=== PATIENT | female | born 2000 | race African-American/Black ===

== ENCOUNTER 2020-06-30 19:22 | Emergency (ER) | payer MEDICAID ==
[~2020-06-30] VITALS: Ht 167.6 cm; Wt 64.0 kg
[2020-06-30 21:27] LABS: UCG SCREEN NEGATIVE
[2020-06-30] MEDS ORDERED: CEFTRIAXONE SODIUM 250 MG/VIAL IM ONE (22:00)
[2020-06-30] MEDS ORDERED: AZITHROMYCIN 500 MG TABLET PO ONE (22:00)
[2020-06-30 23:13] VITALS: BP 122/85
[2020-07-04 04:07] LABS: NEISSERIA GONORRHOEAE NAA Negative (Negative)
== END 2020-06-30 23:14 | disposition home or self-care (01) ==
LOC: ER 19:22
DX: A64 Unspecified sexually transmitted disease (principal); J45.909 Unspecified asthma, uncomplicated
CPT/HCPCS: 81025; 87210; 87491; 87591; 96372; 99283; J0696

== ENCOUNTER 2022-01-14 17:10 | Emergency (ER) | payer MEDICAID, OTHER ==
[~2022-01-14] VITALS: Ht 182.9 cm; Wt 67.0 kg
[2022-01-14 17:12] VITALS: BP 128/82
[2022-01-14] MEDS ORDERED: ACETAMINOPHEN 325MG TABLET PO ONE (17:45)
[2022-01-14] MEDS ORDERED: SODIUM CHLORIDE 0.9% 1,000 ML IV ONE (17:45)
[2022-01-14 18:02] LABS: BASOPHILS % 0.5 % (0.0-2.0); EOSINOPHILS % 0.3 % (0.0-5.0); HEMATOCRIT. 40.1 % (36.0-48.0); HEMOGLOBIN. 13.7 g/dL (12.0-16.0); LYMPHOCYTES % 36.1 % (20.0-50.0); MEAN CORPUSCULAR HEMOGLOBIN 30.7 pg (28.0-32.0); MEAN CORPUSCULAR VOLUME 89.5 fL (81.0-99.0); MEAN PLATELET VOLUME 8.3 fl (7.4-10.4); MONOCYTES % 8.7 % (2.0-8.0); NEUTROPHILS % 54.4 % (40.0-76.0); PLATELET 271 x1000/uL (130-400); RED BLOOD CELL COUNT 4.48 mill/uL (4.2-5.4); RED CELL DISTRIBUTION WIDTH 12.8 % (11.6-14.6)
[2022-01-14 18:12] LABS: CHLORIDE 103 mEq/L (98-107)
[2022-01-14 18:36] LABS: B-HCG QUANTITATIVE 43423 mIU/mL (<3)
== END 2022-01-15 01:08 | disposition left against medical advice (07) ==
LOC: ER 17:10
DX: Z53.21 Procedure and treatment not carried out due to patient leaving prior to being seen by health care provider (principal)
CPT/HCPCS: 36415; 80053; 83690; 84702; 85025; J7030